=== PATIENT | male | born 1995 | race Hispanic/Latino ===

== ENCOUNTER 2020-01-01 10:54 | Outpatient (CLI) | payer OTHER ==
--- NOTE | 2020-01-01 12:01 | RAD ---
Left knee 4 views HISTORY: Knee pain. FINDINGS: Joint spaces are preserved. No acute fracture, dislocation, or aggressive osseous erosions are apparent. There is prominent fluid distention of the suprapatellar bursa on the lateral view. IMPRESSION : Large amount of joint fluid. Etiology is not evident, as no acute osseous abnormalities are demonstra danilo.
== END 2020-01-01 10:55 | disposition home or self-care (01) ==
LOC: BICRAD 10:54
PROVIDERS: ATTEND Nurse Practitioner Family
DX: M25.562 Pain in left knee (principal)